=== PATIENT | female | born 1975 | race Caucasian/White ===

== ENCOUNTER 2019-09-06 19:26 | Emergency (ER) | payer BC, MEDICAID, OTHER ==
[2019-09-06] MEDS ORDERED: Sodium Chloride 0.9% 10 ML Syringe FLUSH PRN (19:45)
[2019-09-06] MEDS ORDERED: Sodium Chloride 0.9% 2.5 ML Syringe FLUSH PRN (19:45)
[2019-09-06] MEDS ORDERED: Sodium Chloride 0.9% 1,000 ML IV ONE ×2 (19:45→20:35)
--- NOTE | 2019-09-06 19:51 | EDM.PDOC ---
ED HPI GENERAL MEDICAL PROBLEM - General Chief Complaint: Gastrointestinal Problem Stated Complaint: SPOKE TO NURSE Time Seen by Provider: 09/06/19 19:35 - History of Present Illness INITIAL COMMENTS - FREE TEXT/NARRATIVE: HISTORY AND PHYSICAL: History of present illness: The patient is a 43-year-old female who presents with complaints of profound diarrhea for the last 24 hours which is light brown in color and not black or bloody. She said that she was feeling fine yesterday and over the last 24 hours has had about 10 episodes of watery diarrhea without vomiting or nausea. She only has some discomfort right before she has to run to the bathroom. She is status post tonsillectomy and adenoidectomy on Sunday, 3 days ago, in [place] with Dr. Gonzalez. She says she was concerned because he told her that the tonsils were full of bacteria. She's had no fevers or chills and has pain with swallowing and in her throat but she has been able to take fluids but is not eating any solids. She told me that she was taking fluids but she told nursing that she has only had a few popsicles since morning. She says she is not concerned about the throat pain and has no headache or neck pain and no cough or shortness of breath. She says that in the last 24 hours she has lost 11 pounds and that is what she is most concerned about. She is not lightheaded or dizzy and has not passed out or blacked out. She is not experiencing any palpitations. Her only abdominal surgical procedure is of a laparoscopic hysterectomy and she's not had any colonic issues or GI issues in the past. Is currently only using liquid Tylenol for pain and no narcotic pain meds and is not on any antibiotics. She tells nursing that she has not taken any over-the- counter medications for the diarrhea because she has a severe allergy to preservatives and that all of them have preservatives in them Review of systems: As per history of present illness and below otherwise all systems reviewed and negative. Past medical history: As per history of present illness and as reviewed below otherwise noncontributory. Surgical history: As per history of present illness and as reviewed below otherwise noncontributory. Social history: No reported history of drug or alcohol abuse. Family history: As per history of present illness and as reviewed below otherwise noncontributory. Physical exam: General: Well-developed well-nourished female who is nontoxic and ambulatory. Vital signs were noted by me. She speaks very softly but is not hoarse or muffled and is not breathless. HEENT: Atraumatic, normocephalic, pupils reactive, negative for conjunctival pallor or scleral icterus, mucous membranes moist, throat is difficult to assess as the patient can open her mouth but I cannot see the tonsillar areas to her inability to relax her tongue and no manipulation was performed of this area. She has some anterior cervical adenopathy but no nuchal rigidity., neck supple, nontender, trachea midline. Lungs: Clear to auscultation, breath sounds equal bilaterally, chest nontender. No wheezing stridor or work of breathing Heart: S1S2, regular rhythm and slightly tachycardic rate on my evaluation but no overt murmurs Abdomen: Soft, nondistended, nontender. Bowel sounds are slightly hypoactive Negative for masses or hepatosplenomegaly. Negative for costovertebral tenderness. Pelvis: Stable nontender. Genitourinary: Deferred. Rectal: Deferred. Extremities: Atraumatic, negative for cords or calf pain. Neurovascular unremarkable. Neuro: Awake, alert, oriented. Cranial nerves II through XII unremarkable. Cerebellum unremarkable. Motor and sensory unremarkable throughout. Exam nonfocal. Diagnostics: CBC CMP lipase magnesium level UA with reflex stool for study EKG urine culture Therapeutics: IV fluids The patient produced a stool sample which is light brown in color and will be sent to the lab. After the patient was on the toilet and had a bowel movement stating to nursing that she was pushing, and then she fell forward impacting her left knee on the ground and then hitting her face and forehead. She did not pass out or blackout and in fact told nursing that she got back onto the toilet and pushed the nursing call button to alert us that this had occurred. Prior to this events the patient ambulated steadily to the bathroom and did not express to me any lightheadedness or dizziness history. On my reexamination of her physically pupils are equal and reactive she has some soft tissue swelling and a superficial abrasion of her midforehead near the hairline as well as a linear line contusion of her lower lip with minimal swelling and discomfort. She has some small amount of blood in her mouth but there is no overt oral laceration or lesion and teeth are intact without any subluxation or injury. Maxilla and mandible are intact without tenderness defects or deformity and there is no nasal blood. Patient has no neck pain on palpation. At her left knee she has a superficial abrasion but there is no soft tissue swelling palpable bony deformity and the patient can range of motion without defects or tenderness. The appropriate paperwork will be performed by nursing as a result of this fall and the patient is currently receiving her IV fluids. I will continue to monitor her her but at this point I will not perform a head CT as her injuries are minimal and she did not have loss of consciousness and there is an etiology of her fall--likely vasovagal after pushing to have the bowel movement---. we will perform an EKG. we will also cleanse the knee and apply bacitracin The patient is receiving her IV fluids and still has not produced a urine sample. Her vital signs have normalized and she has no longer tachycardic. She says she does feel better and in discussion with her she has never taken any [id number] antidiarrheal medicine has of her story of allergies with preservatives so she is unsure if she can take them. According to our telemetry pharmacist the Imodium and Lomotil should be okay and it will be offered to her but in light of her history she is likely going to feel uncomfortable with that response. I have offered her something for pain such as morphine and she says she has taken that in the past and as long as there is no preservatives in the IV morphine that we carry she can take that. That will accomplish both pain relief as well as provide some slowing down of the bowels and may provide her with some relief. She tells me that she has been closely watching her intake and output and that she has been keeping up until today with the extra diarrhea. She is currently not having chest pain or shortness of breath and is not lightheaded or dizzy. The patient is declining the Imodium and Lomotil. She says she has taken Pepto- Bismol in the past, approximately 20 years ago, but her allergies have really surfaced over the last 8 years and she has not taken it since then so she is unsure if she will react to it. Will proceed to give her a dose of morphine here as long as it is preservative-free and she approves. We have dispensed our morphine and it does have sulfate in it which she expresses an allergy to so we will not give her that; she feels uncomfortable trying a new medication such as fentanyl at this point we'll not give her anything in addition to what she is taking at home to assist with her diarrhea. She states understanding She is aware of testing results and that she is still dehydrated per her urine test and she says that she would prefer to go home rather than observation admission. She says she will continue to push fluids and is aware that she can return at any time. I cautioned her to do all position changes slowly and she agrees and feels comfortable with discharge home Impression: Diarrhea and dehydration, history of T&A surgery Vasovagal event in ED with contusions Definitive disposition and diagnosis as appropriate pending reevaluation and review of above. throat Pain Score (Numeric/FACES): 9 abdominal Pain Score (Numeric/FACES): 5 - Related Data Allergies Allergy/AdvReac Type Severity Reaction Status Date / Time alprazolam [From Xanax] Allergy Hives Verified 09/06/19 19:38 hydrocortisone Allergy Anaphylactic Verified 04/30/19 14:55 MDT [From Cortizone-10] Shock hydromorphone HCl Allergy Anaphylactic Verified 04/30/19 14:55 MDT [From Dilaudid] Shock Influenza Virus Vaccines Allergy Other Verified 09/06/19 20:17 ketorolac tromethamine Allergy Anaphylactic Verified 04/30/19 14:55 MDT [From Toradol] Shock Latex, Natural Rubber Allergy Edema Verified 09/06/19 19:38 Sulfa (Sulfonamide Allergy Anaphylactic Verified 04/30/19 14:55 MDT Antibiotics) Shock Tetanus Vaccines and Toxoid Allergy Other Verified 09/06/19 20:17 tramadol Allergy Anaphylactic Verified 04/30/19 14:55 MDT Shock magnesium Allergy Anaphylactic Uncoded 04/21/14 13:45 Shock phosphates Allergy Anaphylactic Uncoded 04/21/14 13:45 Shock preservatives Allergy Other Uncoded 09/06/19 19:38 sulfates Allergy Anaphylactic Uncoded 04/21/14 13:45 Shock sulfer Allergy Anaphylactic Uncoded 04/21/14 13:45 Shock Home Meds: Home Meds Cyanocobalamin (Vitamin B-12) [Vitamin B-12] 1,000 mcg PO DAILY 04/01/19 [ History] Rosuvastatin [Crestor] 10 mg PO DAILY 04/01/19 [History] diphenhydrAMINE [Benadryl] 25 mg PO BEDTIME PRN 04/01/19 [History] Acetaminophen 625 - 1,000 mg PO ASDIRECTED 09/06/19 [History] Dextromethorphan/guaiFENesin [Robitussin DM] 30 ml PO BID 09/06/19 [History] amLODIPine [Norvasc] 10 mg PO DAILY 09/06/19 [History] Past Medical History - Past Health History Medical/Surgical History: Denies Medical/Surgical History HEENT History: Reports: Impaired Vision Cardiovascular History: Reports: High Cholesterol Hematologic History: Reports: B12 Deficiency Social & Family History - Caffeine Use Caffeine Use: Reports: Soda ED ROS GENERAL - Review of Systems Review Of Systems: ROS reveals no pertinent complaints other than HPI. ED EXAM, GENERAL - Physical Exam Exam: See Below (See dictation) Course - Vital Signs Last Recorded V/S: Last Vital Signs Temp 35.9 C 09/06/19 21:39 Pulse 82 09/06/19 21:39 Resp 16 09/06/19 20:08 BP 136/81 09/06/19 21:39 Pulse Ox 97 09/06/19 21:39 - Orders/Labs/Meds Orders: Active Orders 24 hr Category Date Time Status Blood Glucose Check, Bedside [RC] ONETIME Care 09/06/19 19:44 Active Communication Order [RC] STAT Care 09/06/19 20:11 Active EKG Documentation Completion [RC] STAT Care 09/06/19 20:11 Active CULTURE STOOL + CAMPY+SHIGATOX [RM] Stat Lab 09/06/19 20:00 Results CULTURE URINE [RM] Stat Lab 09/06/19 22:00 Received Sodium Chloride 0.9% [Saline Flush] Med 09/06/19 19:45 Active 10 ml FLUSH ASDIRECTED PRN Sodium Chloride 0.9% [Saline Flush] Med 09/06/19 19:45 Active 2.5 ml FLUSH ASDIRECTED PRN Saline Lock Insert [OM.PC] Stat Oth 09/06/19 19:44 Ordered Medication Orders Sodium Chloride (Saline Flush) 10 ml FLUSH ASDIRECTED PRN PRN Reason: Keep Vein Open Sodium Chloride (Saline Flush) 2.5 ml FLUSH ASDIRECTED PRN PRN Reason: Keep Vein Open Labs: Laboratory Tests 09/06/19 09/06/19 09/06/19 Range/Units 19:57 19:57 19:57 WBC 13.56 H (4.0-11.0) K/uL RBC 5.12 (4.30-5.90) M/uL Hgb 15.8 (12.0-16.0) g/dL Hct 46.0 (36.0-46.0) % MCV 89.8 (80.0-98.0) fL MCH 30.9 (27.0-32.0) pg MCHC 34.3 (31.0-37.0) g/dL RDW Std Deviation 41.6 (28.0-62.0) fl RDW Coeff of [place] 13 (11.0-15.0) % Plt Count 260 (150-400) K/uL MPV 9.90 (7.40-12.00) fL Neut % (Auto) 71.3 (48.0-80.0) % Lymph % (Auto) 20.6 (16.0-40.0) % [place] % (Auto) 6.9 (0.0-15.0) % Eos % (Auto) 0.9 (0.0-7.0) % Baso % (Auto) 0.3 (0.0-1.5) % Neut # (Auto) 9.7 H (1.4-5.7) K/uL Lymph # (Auto) 2.8 H (0.6-2.4) K/uL [place] # (Auto) 0.9 H (0.0-0.8) K/uL Eos # (Auto) 0.1 (0.0-0.7) K/uL Baso # (Auto) 0.0 (0.0-0.1) K/uL Nucleated RBC % 0.0 /100WBC Nucleated RBCs # 0 K/uL Sodium 140 (136-145) mmol/L Potassium 3.5 (3.5-5.1) mmol/L Chloride 102 (98-107) mmol/L Carbon Dioxide 21.8 (21.0-32.0) mmol/L BUN 10 (7.0-18.0) mg/dL Creatinine 0.9 (0.6-1.0) mg/dL Est Cr Clr Drug Dosing 67.36 mL/min Estimated GFR (MDRD) > 60.0 ml/min Glucose 98 (74-106) mg/dL POC Glucose 90 (60-110) mg/dL Calcium 9.4 (8.5-10.1) mg/dL Magnesium 2.1 (1.8-2.4) mg/dL Total Bilirubin 1.3 H (0.2-1.0) mg/dL AST 22 (15-37) IU/L ALT 40 (14-63) IU/L Alkaline Phosphatase 79 (46-116) U/L Total Protein 9.5 H (6.4-8.2) g/dL Albumin 4.1 (3.4-5.0) g/dL Globulin 5.4 H (2.6-4.0) g/dL Albumin/Globulin Ratio 0.8 L (0.9-1.6) Lipase 66 L (73-393) U/L Urine Color Urine Appearance Urine pH (5.0-8.0) Ur Specific [place] (1.001-1.035) Urine Protein (NEGATIVE) mg/dL Urine Glucose (UA) (NEGATIVE) mg/dL Urine Ketones (NEGATIVE) mg/dL Urine Occult Blood (NEGATIVE) Urine Nitrite (NEGATIVE) Urine Bilirubin (NEGATIVE) Urine Ictotest Urine Urobilinogen (<2.0) EU/dL Ur Leukocyte Esterase (NEGATIVE) Urine RBC (0-2/HPF) Urine WBC (0-5/HPF) Ur Epithelial Cells (NONE-FEW) Urine Bacteria (NEGATIVE) Hyaline Casts (0-2/LPF) Urine Mucus (NONE-MOD) 09/06/19 Range/Units 22:00 WBC (4.0-11.0) K/uL RBC (4.30-5.90) M/uL Hgb (12.0-16.0) g/dL Hct (36.0-46.0) % MCV (80.0-98.0) fL MCH (27.0-32.0) pg MCHC (31.0-37.0) g/dL RDW Std Deviation (28.0-62.0) fl RDW Coeff of [place] (11.0-15.0) % Plt Count (150-400) K/uL MPV (7.40-12.00) fL Neut % (Auto) (48.0-80.0) % Lymph % (Auto) (16.0-40.0) % [place] % (Auto) (0.0-15.0) % Eos % (Auto) (0.0-7.0) % Baso % (Auto) (0.0-1.5) % Neut # (Auto) (1.4-5.7) K/uL Lymph # (Auto) (0.6-2.4) K/uL [place] # (Auto) (0.0-0.8) K/uL Eos # (Auto) (0.0-0.7) K/uL Baso # (Auto) (0.0-0.1) K/uL Nucleated RBC % /100WBC Nucleated RBCs # K/uL Sodium (136-145) mmol/L Potassium (3.5-5.1) mmol/L Chloride (98-107) mmol/L Carbon Dioxide (21.0-32.0) mmol/L BUN (7.0-18.0) mg/dL Creatinine (0.6-1.0) mg/dL Est Cr Clr Drug Dosing mL/min Estimated GFR (MDRD) ml/min Glucose (74-106) mg/dL POC Glucose (60-110) mg/dL Calcium (8.5-10.1) mg/dL Magnesium (1.8-2.4) mg/dL Total Bilirubin (0.2-1.0) mg/dL AST (15-37) IU/L ALT (14-63) IU/L Alkaline Phosphatase (46-116) U/L Total Protein (6.4-8.2) g/dL Albumin (3.4-5.0) g/dL Globulin (2.6-4.0) g/dL Albumin/Globulin Ratio (0.9-1.6) Lipase (73-393) U/L Urine Color YELLOW Urine Appearance SLT CLOUDY Urine pH 5.5 (5.0-8.0) Ur Specific [place] >= 1.030 (1.001-1.035) Urine Protein TRACE H (NEGATIVE) mg/dL Urine Glucose (UA) NEGATIVE (NEGATIVE) mg/dL Urine Ketones >=80 (NEGATIVE) mg/dL Urine Occult Blood TRACE-INTACT H (NEGATIVE) Urine Nitrite NEGATIVE (NEGATIVE) Urine Bilirubin SMALL H (NEGATIVE) Urine Ictotest NEGATIVE Urine Urobilinogen 0.2 (<2.0) EU/dL Ur Leukocyte Esterase NEGATIVE (NEGATIVE) Urine RBC 0-2 (0-2/HPF) Urine WBC 0-3 (0-5/HPF) Ur Epithelial Cells FEW (NONE-FEW) Urine Bacteria 1+ H (NEGATIVE) Hyaline Casts 1-3 (0-2/LPF) Urine Mucus LIGHT (NONE-MOD) Meds: Medications Generic Name Dose Route Start Last Admin Trade Name Freq PRN Reason Stop Dose Admin Sodium Chloride 10 ml 09/06/19 19:45 Saline Flush FLUSH ASDIRECTED PRN Keep Vein Open Sodium Chloride 2.5 ml 09/06/19 19:45 Saline Flush FLUSH ASDIRECTED PRN Keep Vein Open Discontinued Medications Generic Name Dose Route Start Last Admin Trade Name Freq PRN Reason Stop Dose Admin Bacitracin 1 dose 09/06/19 20:10 09/06/19 20:24 Bacitracin Oint 1 Gm TOP 09/06/19 20:11 1 dose ONETIME ONE Administration Fentanyl Confirm 09/06/19 21:19 09/06/19 21:46 Sublimaze Administered 09/06/19 21:20 Not Given Dose 100 mcg .ROUTE .STK-MED ONE Sodium Chloride 1,000 mls @ 999 mls/hr 09/06/19 19:45 09/06/19 20:24 Normal Saline IV 09/06/19 20:45 999 mls/hr STAT ONE Administration Sodium Chloride 1,000 mls @ 999 mls/hr 09/06/19 20:35 Normal Saline IV 09/06/19 21:35 STAT ONE Morphine Sulfate 2 mg 09/06/19 21:16 09/06/19 21:46 Morphine IVPUSH 09/06/19 21:17 Not Given ONETIME ONE Departure - Departure Time of Disposition: 22:58 Disposition: Home, Self-Care 01 Condition: Fair Clinical Impression: Diarrhea with dehydration - Discharge Information Referrals: Cherie Garcia MD [Primary Care Provider] - Candelario Gonzalez MD [Ordering Only Provider] - Forms: ED Department Discharge Additional Instructions: The following information is given to patients seen in the emergency department who are being discharged to home. This information is to outline your options for follow-up care. We provide all patients seen in our emergency department with a follow-up referral. The need for follow-up, as well as the timing and circumstances, are variable depending upon the specifics of your emergency department visit. If you don't have a primary care physician on staff, we will provide you with a referral. We always advise you to contact your personal physician following an emergency department visit to inform them of the circumstance of the visit and for follow-up with them and/or the need for any referrals to a consulting specialist. The emergency department will also refer you to a specialist when appropriate. This referral assures that you have the opportunity for followup care with a specialist. All of these measure are taken in an effort to provide you with optimal care, which includes your followup. Under all circumstances we always encourage you to contact your private physician who remains a resource for coordinating your care. When calling for followup care, please make the office aware that this follow-up is from your recent emergency room visit. If for any reason you are refused follow-up, please contact the [facility] emergency department at and ask to speak to the emergency department charge nurse. [facility] Primary care- Internal [place] [address] Please connect with your surgeon Dr. Gonzalez on Sunday and let him know about these recent events. Your stool and urine were sent for culture and he will be contacted if there is a need for any medication or treatment of those test results. Continue to push hydration and sips of fluid and follow all discharge instructions from your surgery. Do all position changes slowly and return to ER as needed and as discussed - My Orders Last 24 Hours: My Active Orders 09/06/19 19:44 Blood Glucose Check, Bedside [RC] ONETIME Saline Lock Insert [OM.PC] Stat 09/06/19 19:45 Sodium Chloride 0.9% [Saline Flush] 10 ml FLUSH ASDIRECTED PRN Sodium Chloride 0.9% [Saline Flush] 2.5 ml FLUSH ASDIRECTED PRN 09/06/19 20:00 CULTURE STOOL + CAMPY+SHIGATOX [RM] Stat 09/06/19 20:11 Communication Order [RC] STAT EKG Documentation Completion [RC] STAT 09/06/19 22:00 CULTURE URINE [RM] Stat - Assessment/Plan Last 24 Hours: My Active Orders 09/06/19 19:44 Blood Glucose Check, Bedside [RC] ONETIME Saline Lock Insert [OM.PC] Stat 09/06/19 19:45 Sodium Chloride 0.9% [Saline Flush] 10 ml FLUSH ASDIRECTED PRN Sodium Chloride 0.9% [Saline Flush] 2.5 ml FLUSH ASDIRECTED PRN 09/06/19 20:00 CULTURE STOOL + CAMPY+SHIGATOX [RM] Stat 09/06/19 20:11 Communication Order [RC] STAT EKG Documentation Completion [RC] STAT 09/06/19 22:00 CULTURE URINE [RM] Stat
[2019-09-06] MEDS ORDERED: Bacitracin Oint 1 GM U/D Packet TOP ONE (20:10)
[2019-09-06 20:26] LABS: BLOOD UREA NITROGEN,BUN 10 mg/dL (7.0-18.0); CARBON DIOXIDE,CO2 21.8 mmol/L (21.0-32.0); CHLORIDE,CL 102 mmol/L (98-107); GLUCOSE RANDOM 98 mg/dL (74-106); LIPASE 66 U/L (73-393); POTASSIUM,K 3.5 mmol/L (3.5-5.1); SODIUM,NA 140 mmol/L (136-145)
[2019-09-06] MEDS ORDERED: Morphine 2 MG/ML Syringe IVPUSH ONE (21:16)
[2019-09-06] MEDS ORDERED: fentaNYL 100 MCG/2 ML SDV ONE (21:19)
== END 2019-09-06 23:20 | disposition home or self-care (01) ==
LOC: MW.ED 19:26
DX: S00.81XA Abrasion of other part of head, initial encounter (principal); S00.531A Contusion of lip, initial encounter; E86.0 Dehydration; R19.7 Diarrhea, unspecified; E78.5 Hyperlipidemia, unspecified; Z88.6 Allergy status to analgesic agent; Z91.040 Latex allergy status; Z88.5 Allergy status to narcotic agent; Z88.2 Allergy status to sulfonamides; Z88.7 Allergy status to serum and vaccine; Z88.8 Allergy status to other drugs, medicaments and biological substances; Z91.048 Other nonmedicinal substance allergy status; W18.30XA Fall on same level, unspecified, initial encounter
CPT/HCPCS: 36415; 80053; 81001; 82962; 83690; 83735; 85025; 87046; 87086; 87088; 87186; 87899; 93005; 96360; 96361; 99284; J7040

== ENCOUNTER 2019-09-08 23:13 | Emergency (ER) | payer OTHER ==
[2019-09-08] MEDS ORDERED: Sodium Chloride 0.9% 1,000 ML IV ONE (23:36)
[2019-09-08] MEDS ORDERED: Ondansetron 4 MG/2 ML SDV IVPUSH ONE (23:36)
[2019-09-08] MEDS ORDERED: Sodium Chloride 0.9% 10 ML Syringe FLUSH PRN (23:36)
[2019-09-08] MEDS ORDERED: Dexamethasone 10 MG/ML SDV IVPUSH ONE (23:36)
[2019-09-08] MEDS ORDERED: Sodium Chloride 0.9% 2.5 ML Syringe FLUSH PRN (23:36)
--- NOTE | 2019-09-08 23:41 | EDM.PDOC ---
ED HPI GENERAL MEDICAL PROBLEM - General Chief Complaint: ENT Problem Stated Complaint: VOMITTING BLOOD Time Seen by Provider: 09/08/19 23:32 - History of Present Illness INITIAL COMMENTS - FREE TEXT/NARRATIVE: HISTORY AND PHYSICAL: History of present illness: The patient is a 43-year-old female who had a tonsillectomy and adenoidectomy on Sunday, [address] Gonzalez in [place] and was seen here 09/06 by me for diarrhea that started on Sunday and had been persistent and copious. At that time she felt very dehydrated and was here for IV fluids and had no nausea or vomiting but did have persistent pain in her neck and trouble swallowing and keeping up with her hydration. The patient received IV fluids and due to her extensive allergies she declined any anti-diarrheal medications said that she could not take much for pain other than plain Tylenol. She contacted her surgeon today and was told that if the diarrhea persisted that she needed to come in to get IV fluids. The patient says that this evening she had an episode of vomiting where there was a large amount of blood and she is currently spitting some blood but it is not copious and she is concerned about her tonsillectomy site. She was told by the nurse of the ENT surgeon that potentially she should get a dose of Decadron to help with the inflammation and swelling and that might allow her to take more fluids by mouth. The patient says she has had at least 8 episodes of watery diarrhea today and it is not black or bloody. She has no abdominal pain other than some diffuse discomfort. She has no chest pain or shortness of breath. Review of systems: As per history of present illness and below otherwise all systems reviewed and negative. Past medical history: As per history of present illness and as reviewed below otherwise noncontributory. Surgical history: As per history of present illness and as reviewed below otherwise noncontributory. Social history: No reported history of drug or alcohol abuse. Family history: As per history of present illness and as reviewed below otherwise noncontributory. Physical exam: Well-developed well-nourished mildly overweight female who is nontoxic and vital signs are noted by me. The patient has an emesis basin in her hand and has spit mixed with blood but she is not actively bleeding from her mouth. Patient speaks softly but she is not breathless HEENT: Atraumatic, normocephalic, pupils reactive, negative for conjunctival pallor or scleral icterus, , throat is difficult to see as the patient does not relax her tongue worry much but I do not see any gross active bleeding from the tonsillar surgical sites and there appears to be dark blood and clot seen. Mucosal is tacky, neck supple, nontender, trachea midline. Lungs: Clear to auscultation, breath sounds equal bilaterally, chest nontender. Heart: S1S2, regular rhythm and tachycardic rate of my evaluation but no overt murmurs, negative for clicks, rubs, or JVD. Abdomen: Soft, nondistended, nontender. Negative for masses or hepatosplenomegaly. Negative for costovertebral tenderness. Pelvis: Stable nontender. Genitourinary: Deferred. Rectal: Deferred. Extremities: Atraumatic, negative for cords or calf pain. Neurovascular unremarkable. Neuro: Awake, alert, oriented. Cranial nerves II through XII unremarkable. Cerebellum unremarkable. Motor and sensory unremarkable throughout. Exam nonfocal. Diagnostics: CBC CMP INR Therapeutics: IV fluids Zofran Decadron Patient is feeling much improved and has not had any vomiting or any bleeding from her mouth or throat. She is aware that I have retrieved her culture results from her visit 2 days ago and that the stool was negative for any bacterial infection but the urine was positive for Escherichia coli eats antibiotic therapy. I will discuss with her the options with her allergy list. I am attempting to connect with her provider Dr. Gonzalez to keep him informed of what's going on and we are trying to find numbers to connect with him. The patient says that she has taken Cipro in the past and her culture for urine is sensitive to that. I will give her a prescription for Cipro suspension as she is specifically requesting liquid 0126: I was able to get a hold of the patient's surgeon Dr. Gonzalez and to discuss this case with him. He said that he would be happy to see the patient in his clinic in the morning and that she should call his office when it opens to get an appointment time. He is aware of the challenges with this patient due to her numerous allergies especially to preservatives and her limited ability to take medications for pain. He is appreciative of my evaluation and care of the patient and said that the Zofran would be fine for discharge home to help suppress the vomiting and prevent further irritation of the post tonsillectomy sites. The patient is aware of this conversation and we will continue to give her the 2 L of IV fluids and send her home with Terence BETTS. She is currently not actively spitting blood or bleeding and not swallowing blood. Impression: Persistent diarrhea, dehydration, episode of vomiting with post tonsillectomy bleeding stable; positive urine culture on 09/06 Definitive disposition and diagnosis as appropriate pending reevaluation and review of above. throat Pain Score (Numeric/FACES): 9 - Related Data Allergies Allergy/AdvReac Type Severity Reaction Status Date / Time alprazolam [From Xanax] Allergy Hives Verified 09/08/19 23:33 amoxicillin Allergy Anaphylactic Verified 09/09/19 00:28 Shock hydrocortisone Allergy Anaphylactic Verified 09/08/19 23:33 [From Cortizone-10] Shock hydromorphone HCl Allergy Anaphylactic Verified 09/08/19 23:33 [From Dilaudid] Shock Influenza Virus Vaccines Allergy Other Verified 09/08/19 23:33 ketorolac tromethamine Allergy Anaphylactic Verified 09/08/19 23:33 [From Toradol] Shock Latex, Natural Rubber Allergy Edema Verified 09/08/19 23:33 Sulfa (Sulfonamide Allergy Anaphylactic Verified 09/08/19 23:33 Antibiotics) Shock Tetanus Vaccines and Toxoid Allergy Other Verified 09/08/19 23:33 tramadol Allergy Anaphylactic Verified 09/08/19 23:33 Shock magnesium Allergy Anaphylactic Uncoded 09/08/19 23:33 Shock phosphates Allergy Anaphylactic Uncoded 09/08/19 23:33 Shock preservatives Allergy Other Uncoded 09/08/19 23:33 sulfates Allergy Anaphylactic Uncoded 09/08/19 23:33 Shock sulfer Allergy Anaphylactic Uncoded 09/08/19 23:33 Shock Home Meds: Home Meds Cyanocobalamin (Vitamin B-12) [Vitamin B-12] 1,000 mcg PO DAILY 04/01/19 [ History] Rosuvastatin [Crestor] 10 mg PO DAILY 04/01/19 [History] Dextromethorphan/guaiFENesin [Robitussin DM] 30 ml PO BID 09/06/19 [History] amLODIPine [Norvasc] 10 mg PO DAILY 09/06/19 [History] Acetaminophen 19.5 - 31.5 ml PO Q4HR PRN 09/09/19 [History] Past Medical History - Past Health History Medical/Surgical History: Denies Medical/Surgical History HEENT History: Reports: Impaired Vision Cardiovascular History: Reports: High Cholesterol Hematologic History: Reports: B12 Deficiency - Past Surgical History HEENT Surgical History: Reports: Adenoidectomy, Tonsillectomy GI Surgical History: Reports: Colonoscopy, EGD Female Surgical History: Reports: Hysterectomy Social & Family History - Family History Family Medical History: Noncontributory - Caffeine Use Caffeine Use: Reports: Soda ED ROS GENERAL - Review of Systems Review Of Systems: ROS reveals no pertinent complaints other than HPI. ED EXAM, GENERAL - Physical Exam Exam: See Below (see Dictation) Course - Vital Signs Last Recorded V/S: Last Vital Signs Temp 35.9 C 09/08/19 23:15 Pulse 93 09/09/19 01:21 Resp 17 09/09/19 01:21 BP 139/77 09/09/19 01:21 Pulse Ox 94 L 09/09/19 01:21 - Orders/Labs/Meds Orders: Active Orders 24 hr Category Date Time Status Sodium Chloride 0.9% [Normal Saline] 1,000 ml Med 09/09/19 01:46 Active IV STAT Sodium Chloride 0.9% [Saline Flush] Med 09/08/19 23:36 Active 10 ml FLUSH ASDIRECTED PRN Sodium Chloride 0.9% [Saline Flush] Med 09/08/19 23:36 Active 2.5 ml FLUSH ASDIRECTED PRN Saline Lock Insert [OM.PC] Stat Oth 09/08/19 23:36 Ordered Medication Orders Sodium Chloride (Normal Saline) 1,000 mls @ 999 mls/hr IV STAT ONE Stop: 09/09/19 02:46 Sodium Chloride (Saline Flush) 10 ml FLUSH ASDIRECTED PRN PRN Reason: Keep Vein Open Sodium Chloride (Saline Flush) 2.5 ml FLUSH ASDIRECTED PRN PRN Reason: Keep Vein Open Labs: Laboratory Tests 09/08/19 09/08/19 09/08/19 Range/Units 23:20 23:20 23:20 WBC 11.70 H (4.0-11.0) K/uL RBC 5.10 (4.30-5.90) M/uL Hgb 15.7 (12.0-16.0) g/dL Hct 45.0 (36.0-46.0) % MCV 88.2 (80.0-98.0) fL MCH 30.8 (27.0-32.0) pg MCHC 34.9 (31.0-37.0) g/dL RDW Std Deviation 40.8 (28.0-62.0) fl RDW Coeff of Pantera 13 (11.0-15.0) % Plt Count 288 (150-400) K/uL MPV 9.80 (7.40-12.00) fL Neut % (Auto) 59.2 (48.0-80.0) % Lymph % (Auto) 30.2 (16.0-40.0) % [place] % (Auto) 7.9 (0.0-15.0) % Eos % (Auto) 2.1 (0.0-7.0) % Baso % (Auto) 0.6 (0.0-1.5) % Neut # (Auto) 6.9 H (1.4-5.7) K/uL Lymph # (Auto) 3.5 H (0.6-2.4) K/uL [place] # (Auto) 0.9 H (0.0-0.8) K/uL Eos # (Auto) 0.3 (0.0-0.7) K/uL Baso # (Auto) 0.1 (0.0-0.1) K/uL Nucleated RBC % 0.0 /100WBC Nucleated RBCs # 0 K/uL INR 1.00 Sodium 140 (136-145) mmol/L Potassium 3.4 L (3.5-5.1) mmol/L Chloride 101 (98-107) mmol/L Carbon Dioxide 22.7 (21.0-32.0) mmol/L BUN 8 (7.0-18.0) mg/dL Creatinine 0.9 (0.6-1.0) mg/dL Est Cr Clr Drug Dosing 67.36 mL/min Estimated GFR (MDRD) > 60.0 ml/min Glucose 121 H (74-106) mg/dL Calcium 9.4 (8.5-10.1) mg/dL Total Bilirubin 1.0 (0.2-1.0) mg/dL AST 19 (15-37) IU/L ALT 38 (14-63) IU/L Alkaline Phosphatase 80 (46-116) U/L Total Protein 9.5 H (6.4-8.2) g/dL Albumin 4.0 (3.4-5.0) g/dL Globulin 5.5 H (2.6-4.0) g/dL Albumin/Globulin Ratio 0.7 L (0.9-1.6) Meds: Medications Generic Name Dose Route Start Last Admin Trade Name Freq PRN Reason Stop Dose Admin Sodium Chloride 1,000 mls @ 999 mls/hr 09/09/19 01:46 Normal Saline IV 09/09/19 02:46 STAT ONE Sodium Chloride 10 ml 09/08/19 23:36 Saline Flush FLUSH ASDIRECTED PRN Keep Vein Open Sodium Chloride 2.5 ml 09/08/19 23:36 Saline Flush FLUSH ASDIRECTED PRN Keep Vein Open Discontinued Medications Generic Name Dose Route Start Last Admin Trade Name Freq PRN Reason Stop Dose Admin Dexamethasone 10 mg 09/08/19 23:36 09/08/19 23:53 Dexamethasone IVPUSH 09/08/19 23:37 10 mg ONETIME ONE Administration Sodium Chloride 1,000 mls @ 999 mls/hr 09/08/19 23:36 09/08/19 23:48 Normal Saline IV 09/09/19 00:36 999 mls/hr STAT ONE Administration Ondansetron HCl 4 mg 09/08/19 23:36 09/08/19 23:49 Zofran IVPUSH 09/08/19 23:37 4 mg ONETIME ONE Administration Ondansetron HCl 4 mg 09/09/19 01:18 09/09/19 01:20 Zofran IVPUSH 09/09/19 01:19 4 mg ONETIME ONE Administration Ondansetron HCl Confirm 09/09/19 01:18 Zofran Administered 09/09/19 01:19 Dose 4 mg .ROUTE .STK-MED ONE Departure - Departure Time of Disposition: 02:02 Disposition: Home, Self-Care 01 Condition: Fair Clinical Impression: Postoperative bleeding from mouth, Dehydration Diarrhea Qualifiers: Diarrhea type: unspecified type Qualified Code(s): R19.7 - Diarrhea, unspecified - Discharge Information Referrals: PCP,None [Primary Care Provider] - Candelario Gonzalez MD [Ordering Only Provider] - Forms: ED Department Discharge Additional Instructions: The following information is given to patients seen in the emergency department who are being discharged to home. This information is to outline your options for follow-up care. We provide all patients seen in our emergency department with a follow-up referral. The need for follow-up, as well as the timing and circumstances, are variable depending upon the specifics of your emergency department visit. If you don't have a primary care physician on staff, we will provide you with a referral. We always advise you to contact your personal physician following an emergency department visit to inform them of the circumstance of the visit and for follow-up with them and/or the need for any referrals to a consulting specialist. The emergency department will also refer you to a specialist when appropriate. This referral assures that you have the opportunity for followup care with a specialist. All of these measure are taken in an effort to provide you with optimal care, which includes your followup. Under all circumstances we always encourage you to contact your private physician who remains a resource for coordinating your care. When calling for followup care, please make the office aware that this follow-up is from your recent emergency room visit. If for any reason you are refused follow-up, please contact the [facility] emergency department at and ask to speak to the emergency department charge nurse. [facility] Primary care- Internal Medicine and Family [address] [id number] Use Zofran you have been given from [facility] to help suppress the nausea and any vomiting. Try to continue to push fluids and use your medications as prescribed postoperatively. Please fill the prescription for the antibiotic, ciprofloxacin, for your urine culture which is positive. Please call Dr. Gonzalez 's office when it opens this morning and schedule an appointment to see him later today as we discussed. Return to ER as needed and as discussed - My Orders Last 24 Hours: My Active Orders 09/08/19 23:36 Sodium Chloride 0.9% [Saline Flush] 10 ml FLUSH ASDIRECTED PRN Sodium Chloride 0.9% [Saline Flush] 2.5 ml FLUSH ASDIRECTED PRN Saline Lock Insert [OM.PC] Stat 09/09/19 01:46 Sodium Chloride 0.9% [Normal Saline] 1,000 ml IV STAT - Assessment/Plan Last 24 Hours: My Active Orders 09/08/19 23:36 Sodium Chloride 0.9% [Saline Flush] 10 ml FLUSH ASDIRECTED PRN Sodium Chloride 0.9% [Saline Flush] 2.5 ml FLUSH ASDIRECTED PRN Saline Lock Insert [OM.PC] Stat 09/09/19 01:46 Sodium Chloride 0.9% [Normal Saline] 1,000 ml IV STAT
[2019-09-08 23:53] LABS: BLOOD UREA NITROGEN,BUN 8 mg/dL (7.0-18.0); CARBON DIOXIDE,CO2 22.7 mmol/L (21.0-32.0); CHLORIDE,CL 101 mmol/L (98-107); GLUCOSE RANDOM 121 mg/dL (74-106); POTASSIUM,K 3.4 mmol/L (3.5-5.1); SODIUM,NA 140 mmol/L (136-145)
[2019-09-09] MEDS ORDERED: Ondansetron 4 MG/2 ML SDV IVPUSH ONE (01:18)
[2019-09-09] MEDS ORDERED: Ondansetron 4 MG/2 ML SDV ONE (01:18)
[2019-09-09] MEDS ORDERED: Sodium Chloride 0.9% 1,000 ML IV ONE (01:46)
== END 2019-09-09 02:22 | disposition home or self-care (01) ==
LOC: MW.ED 23:13
DX: J95.830 Postprocedural hemorrhage of a respiratory system organ or structure following a respiratory system procedure (principal); E86.0 Dehydration; R19.7 Diarrhea, unspecified; E78.00 Pure hypercholesterolemia, unspecified; Z88.8 Allergy status to other drugs, medicaments and biological substances; Z88.0 Allergy status to penicillin; Z88.5 Allergy status to narcotic agent; Z88.7 Allergy status to serum and vaccine; Z88.6 Allergy status to analgesic agent; Z91.040 Latex allergy status; Z88.2 Allergy status to sulfonamides; Z91.048 Other nonmedicinal substance allergy status; Z91.09 Other allergy status, other than to drugs and biological substances; Z79.899 Other long term (current) drug therapy
CPT/HCPCS: 36415; 80053; 85025; 85610; 99284; J1100; J2405; J7040

== ENCOUNTER 2019-09-10 09:18 | Emergency (ER) | payer OTHER ==
[2019-09-10] MEDS ORDERED: Sodium Chloride 0.9% 1,000 ML IV ONE (09:31)
[2019-09-10] MEDS ORDERED: Sodium Chloride 0.9% 10 ML Syringe FLUSH PRN (09:35)
[2019-09-10] MEDS ORDERED: Ondansetron 4 MG/2 ML SDV IVPUSH ONE (09:35)
[2019-09-10] MEDS ORDERED: Morphine 2 MG/ML Syringe IVPUSH ONE (09:35)
[2019-09-10] MEDS ORDERED: Sodium Chloride 0.9% 2.5 ML Syringe FLUSH PRN (09:35)
[2019-09-10] MEDS ORDERED: Dexamethasone 10 MG/ML SDV IVPUSH ONE (09:35)
--- NOTE | 2019-09-10 09:36 | EDM.PDOC ---
ED HPI GENERAL MEDICAL PROBLEM - General Chief Complaint: ENT Problem Stated Complaint: SWOLLEN ADNOIDS Time Seen by Provider: 09/10/19 09:20 Source of Information: Reports: Patient History Limitations: Reports: No Limitations - History of Present Illness INITIAL COMMENTS - FREE TEXT/NARRATIVE: History of present illness: []Patient had a tonsillectomy on October [address] Gonzalez returns for her third ER visit since surgery complaining of pain and inability to swallow. Patient is tolerating her saliva. Review of systems: As per history of present illness and below otherwise all systems reviewed and negative. Past medical history: As per history of present illness and as reviewed below otherwise noncontributory. Surgical history: As per history of present illness and as reviewed below otherwise noncontributory. Social history: No reported history of drug or alcohol abuse. Family history: As per history of present illness and as reviewed below otherwise noncontributory. Physical exam: General: Well developed, well nourished in NAD HEENT: Atraumatic, normocephalic, pupils reactive, negative for conjunctival pallor or scleral icterus, mucous membranes moist,dear your pharynx is erythematous, mild edema, no stridor, neck supple, nontender, trachea midline. Lungs: Clear to auscultation, breath sounds equal bilaterally, chest nontender. Heart: S1S2, regular, negative for clicks, rubs, or JVD. Abdomen: NABS, Soft, nondistended, nontender. Negative for masses or hepatosplenomegaly. Negative for costovertebral tenderness. Pelvis: Stable nontender. Genitourinary: Deferred. Rectal: Deferred. Extremities: Atraumatic, negative for cords or calf pain. Neurovascular unremarkable. Neuro: Awake, alert, oriented. Cranial nerves II through XII unremarkable. Cerebellum unremarkable. Motor and sensory unremarkable throughout. Exam nonfocal. Skin:warm and dry Diagnostics: cbc Therapeutics: IVF, decadron ED Course: stable Impression: inadequate pain control Prescriptions: medrol dose pack Plan: Take meds as directed, follow up with your primary care physician, return to ER if symptoms worsen or change. Definitive disposition and diagnosis as appropriate pending reevaluation and review of above. Throat Pain Score (Numeric/FACES): 9 - Related Data Allergies Allergy/AdvReac Type Severity Reaction Status Date / Time alprazolam [From Xanax] Allergy Hives Verified 09/10/19 09:35 amoxicillin Allergy Anaphylactic Verified 09/10/19 09:35 Shock hydrocortisone Allergy Anaphylactic Verified 09/10/19 09:35 [From Cortizone-10] Shock hydromorphone HCl Allergy Anaphylactic Verified 09/10/19 09:35 [From Dilaudid] Shock Influenza Virus Vaccines Allergy Other Verified 09/10/19 09:35 ketorolac tromethamine Allergy Anaphylactic Verified 09/10/19 09:35 [From Toradol] Shock Latex, Natural Rubber Allergy Edema Verified 09/10/19 09:35 Sulfa (Sulfonamide Allergy Anaphylactic Verified 09/10/19 09:35 Antibiotics) Shock Tetanus Vaccines and Toxoid Allergy Other Verified 09/10/19 09:35 tramadol Allergy Anaphylactic Verified 09/10/19 09:35 Shock magnesium Allergy Anaphylactic Uncoded 09/08/19 23:33 Shock phosphates Allergy Anaphylactic Uncoded 09/08/19 23:33 Shock preservatives Allergy Other Uncoded 09/08/19 23:33 sulfates Allergy Anaphylactic Uncoded 09/08/19 23:33 Shock sulfer Allergy Anaphylactic Uncoded 09/08/19 23:33 Shock Home Meds: Home Meds Cyanocobalamin (Vitamin B-12) [Vitamin B-12] 1,000 mcg PO DAILY 04/01/19 [ History] Rosuvastatin [Crestor] 10 mg PO DAILY 04/01/19 [History] Dextromethorphan/guaiFENesin [Robitussin DM] 30 ml PO BID 09/06/19 [History] amLODIPine [Norvasc] 10 mg PO DAILY 09/06/19 [History] Acetaminophen 19.5 - 31.5 ml PO Q4HR PRN 09/09/19 [History] Ondansetron [Zofran ODT] 4 mg PO ASDIRECTED 09/10/19 [History] methylPREDNISolone [Medrol] 4 mg PO ASDIRECTED #1 dosepk 09/10/19 [Rx] Past Medical History - Past Health History Medical/Surgical History: Denies Medical/Surgical History HEENT History: Reports: Impaired Vision Cardiovascular History: Reports: High Cholesterol Hematologic History: Reports: B12 Deficiency - Past Surgical History HEENT Surgical History: Reports: Adenoidectomy, Tonsillectomy GI Surgical History: Reports: Colonoscopy, EGD Female Surgical History: Reports: Hysterectomy Social & Family History - Family History Family Medical History: Noncontributory - Caffeine Use Caffeine Use: Reports: Soda ED ROS GENERAL - Review of Systems Review Of Systems: See Below ED EXAM, GENERAL - Physical Exam Exam: See Below Course - Vital Signs Last Recorded V/S: Last Vital Signs Temp 97.6 F 09/10/19 09:31 Pulse 99 09/10/19 09:31 Resp 18 09/10/19 09:31 BP 124/85 09/10/19 09:31 Pulse Ox 96 09/10/19 09:31 - Orders/Labs/Meds Orders: Active Orders 24 hr Category Date Time Status Sodium Chloride 0.9% [Saline Flush] Med 09/10/19 09:35 Active 10 ml FLUSH ASDIRECTED PRN Sodium Chloride 0.9% [Saline Flush] Med 09/10/19 09:35 Active 2.5 ml FLUSH ASDIRECTED PRN Saline Lock Insert [OM.PC] Stat Oth 09/10/19 09:31 Ordered Medication Orders Sodium Chloride (Saline Flush) 10 ml FLUSH ASDIRECTED PRN PRN Reason: Keep Vein Open Sodium Chloride (Saline Flush) 2.5 ml FLUSH ASDIRECTED PRN PRN Reason: Keep Vein Open Labs: Laboratory Tests 09/10/19 Range/Units 09:36 WBC 10.94 (4.0-11.0) K/uL RBC 4.80 (4.30-5.90) M/uL Hgb 14.5 (12.0-16.0) g/dL Hct 43.4 (36.0-46.0) % MCV 90.4 (80.0-98.0) fL MCH 30.2 (27.0-32.0) pg MCHC 33.4 (31.0-37.0) g/dL RDW Std Deviation 42.7 (28.0-62.0) fl RDW Coeff of Pantera 13 (11.0-15.0) % Plt Count 308 (150-400) K/uL MPV 9.60 (7.40-12.00) fL Neut % (Auto) 53.2 (48.0-80.0) % Lymph % (Auto) 37.3 (16.0-40.0) % [place] % (Auto) 7.8 (0.0-15.0) % Eos % (Auto) 1.1 (0.0-7.0) % Baso % (Auto) 0.6 (0.0-1.5) % Neut # (Auto) 5.8 H (1.4-5.7) K/uL Lymph # (Auto) 4.1 H (0.6-2.4) K/uL [place] # (Auto) 0.9 H (0.0-0.8) K/uL Eos # (Auto) 0.1 (0.0-0.7) K/uL Baso # (Auto) 0.1 (0.0-0.1) K/uL Nucleated RBC % 0.0 /100WBC Nucleated RBCs # 0 K/uL Meds: Medications Generic Name Dose Route Start Last Admin Trade Name Freq PRN Reason Stop Dose Admin Sodium Chloride 10 ml 09/10/19 09:35 Saline Flush FLUSH ASDIRECTED PRN Keep Vein Open Sodium Chloride 2.5 ml 09/10/19 09:35 Saline Flush FLUSH ASDIRECTED PRN Keep Vein Open Discontinued Medications Generic Name Dose Route Start Last Admin Trade Name Freq PRN Reason Stop Dose Admin Dexamethasone 10 mg 09/10/19 09:35 09/10/19 09:51 Dexamethasone IVPUSH 09/10/19 09:36 10 mg ONETIME ONE Administration Sodium Chloride 1,000 mls @ 999 mls/hr 09/10/19 09:31 09/10/19 09:51 Normal Saline IV 09/10/19 10:31 999 mls/hr .Bolus ONE Administration Morphine Sulfate 2 mg 09/10/19 09:35 09/10/19 09:51 Morphine IVPUSH 09/10/19 09:36 2 mg ONETIME ONE Administration Ondansetron HCl 4 mg 09/10/19 09:35 09/10/19 09:51 Zofran IVPUSH 09/10/19 09:36 4 mg ONETIME ONE Administration Departure - Departure Time of Disposition: 10:36 Disposition: Home, Self-Care 01 Condition: Good Clinical Impression: Inadequate pain control, Postoperative pain Clinical Impression: (Ruled Out): Post-operative complication - Discharge Information *PRESCRIPTION DRUG MONITORING PROGRAM REVIEWED*: No *COPY OF PRESCRIPTION DRUG MONITORING REPORT IN PATIENT ELLIS: No Prescriptions: methylPREDNISolone [Medrol] 4 mg PO ASDIRECTED #1 dosepk Referrals: Cherie Garcia MD [Primary Care Provider] - Candelario Gonzalez MD [Ordering Only Provider] - (next available or previously scheduled appointment) Forms: ED Department Discharge Additional Instructions: The following information is given to patients seen in the emergency department who are being discharged to home. This information is to outline your options for follow-up care. We provide all patients seen in our emergency department with a follow-up referral. The need for follow-up, as well as the timing and circumstances, are variable depending upon the specifics of your emergency department visit. If you don't have a primary care physician on staff, we will provide you with a referral. We always advise you to contact your personal physician following an emergency department visit to inform them of the circumstance of the visit and for follow-up with them and/or the need for any referrals to a consulting specialist. The emergency department will also refer you to a specialist when appropriate. This referral assures that you have the opportunity for follow-up care with a specialist. All of these measure are taken in an effort to provide you with optimal care, which includes your follow-up. Under all circumstances we always encourage you to contact your private physician who remains a resource for coordinating your care. When calling for follow-up care, please make the office aware that this follow-up is from your recent emergency room visit. If for any reason you are refused follow-up, please contact the [facility] Emergency Department at and asked to speak to the emergency department charge nurse. Take meds as directed, follow up with your primary care physician, return to ER if symptoms worsen or change. [facility] [address] [place] [id number] - My Orders Last 24 Hours: My Active Orders 09/10/19 09:31 Saline Lock Insert [OM.PC] Stat 09/10/19 09:35 Sodium Chloride 0.9% [Saline Flush] 10 ml FLUSH ASDIRECTED PRN Sodium Chloride 0.9% [Saline Flush] 2.5 ml FLUSH ASDIRECTED PRN - Assessment/Plan Last 24 Hours: My Active Orders 09/10/19 09:31 Saline Lock Insert [OM.PC] Stat 09/10/19 09:35 Sodium Chloride 0.9% [Saline Flush] 10 ml FLUSH ASDIRECTED PRN Sodium Chloride 0.9% [Saline Flush] 2.5 ml FLUSH ASDIRECTED PRN
== END 2019-09-10 10:50 | disposition home or self-care (01) ==
LOC: MW.ED 09:18
DX: G89.18 Other acute postprocedural pain (principal); J35.8 Other chronic diseases of tonsils and adenoids; Z88.6 Allergy status to analgesic agent; Z88.5 Allergy status to narcotic agent; Z88.0 Allergy status to penicillin; Z88.2 Allergy status to sulfonamides; Z88.8 Allergy status to other drugs, medicaments and biological substances; Z91.048 Other nonmedicinal substance allergy status; E78.5 Hyperlipidemia, unspecified; Z79.899 Other long term (current) drug therapy
CPT/HCPCS: 36415; 85025; 96361; 96374; 96375; 99284; J1100; J2270; J2405; J7040; 99283